=== PATIENT | male | born 1960 | race Hispanic/Latino ===

== ENCOUNTER → 2019-04-09 | Day surgery (SDC) | payer OTHER ==
[2019-04-07 10:43] LABS: BASOPHILS # (AUTO) 0.1 (0.0-0.1); BASOPHILS % 0.8 % (0.0-1.0); EOSINOPHILS # (AUTO) 0.5 (0.0-0.4); EOSINOPHILS % 7.5 % (0.0-6.0); HEMATOCRIT 42.5 % (38.2-49.6); HEMOGLOBIN 14.7 g/dL (14.0-18.0); LYMPHOCYTES # (AUTO) 1.4 (1.0-3.2); LYMPHOCYTES % 21.9 % (18.0-39.1); MEAN CORPUSCULAR HEMOGLOBIN 32.5 pg (28-32); MEAN CORPUSCULAR HGB CONC 34.6 g/dL (31-35); MEAN CORPUSCULAR VOLUME 93.8 fL (81-99); MONOCYTES # (AUTO) 0.6 (0.2-0.8); MONOCYTES % 8.7 % (4.4-11.3); NEUTROPHILS # (AUTO) 3.9 (2.1-6.9); NEUTROPHILS % 60.6 % (38.7-80.0); PLATELET COUNT 138 x10e3/uL (140-360); RED BLOOD COUNT 4.53 x10e6/uL (4.3-5.7); RED CELL DISTRIBUTION WIDTH 12.7 % (11.7-14.4)
[2019-04-07 10:55] LABS: INR 1.12; PROTHROMBIN TIME 14.9 seconds (11.9-14.5)
[2019-04-07 11:02] LABS: ALANINE AMINOTRANSFERASE 40 IU/L (0-55); ALBUMIN 3.9 g/dL (3.5-5.0); ALBUMIN/GLOBULIN RATIO 1.4 (0.8-2.0); ALKALINE PHOSPHATASE 106 IU/L (40-150); ANION GAP 12.1 mmol/L (8-16); BLOOD UREA NITROGEN 11 mg/dL (7-26); BUN/CREATININE RATIO 14 (6-25); CALCIUM 9.1 mg/dL (8.4-10.2); CARBON DIOXIDE 26 mmol/L (22-29); CHLORIDE 104 mmol/L (98-107); EST GLOMERULAR FILTRATION RATE > 60 ML/MIN (60-); GLUCOSE 164 mg/dL (74-118); POTASSIUM 4.1 mmol/L (3.5-5.1); SODIUM 138 mmol/L (136-145)
[~2019-04-09] VITALS: Ht 172.7 cm; Wt 10.9 kg
[~2019-04-09] MED LIST: AMLODIPINE BESY10 MG PO; ATORVASTATIN CA20 MG PO; BENZOCAINE 20% SPR 60 ML CAN ONE; ELIQUIS5 MG PO; FENTANYL CITRATE/PF 100MCG/2 ML INJ ONE; LIDOCAINE HCL 2% LOCAL INJ 5 ML SDV VIAL INJ ONE; METOPROLOL TART25 MG PO; PROPOFOL IV EMULSION 10 MG/ML 20 ML VIAL ONE; SODIUM CHLORIDE 0.9% 1000ML 1,000 ML ONE
[2019-04-09 09:10] VITALS: BP 103/83
--- NOTE | 2019-04-09 11:20 | NUR ---
PROCEDURE NOTE- 1039- PATIENT BROUGHT TO OR ROOM#5 FOR SANDRA/ELECTIVE CARDIOVERSION. ANESTHESIA AT BEDSIDE ASSESSING PATIENT. PATIENT HOOKED TO MONITORS. FULL STACK PYTHON DEVELOPER,KENTRELL ARRIVES WITH US MACHINE. 1047- MD ARRIVES AND TIME OUT PERFORMED WITH ALL PARTICIPATING STAFF. ALL AGREE. 1050- HURRICAINE SPRAY X2 AND MOUTHPIECE INSERTED AND SECURED INTO PATIENT MOUTH. 1052- SANDRA PROBE INSERTED. 1100- BUBBLE STUDY DONE. 1104- SANDRA PROBE OUT. 1105- SYNCHRONIZED CARDIOVERSION PERFORMED AT 100J X1 SHOCK. PATIENT CONVERTED TO SINUS RHYTHM CONFIRMED BY PHYSICIAN ON ZOLL MACHINE. 1108- PATIENT REMOVED FROM MONITORS AND TAKEN TO PHASE 1 RECOVERY BAY #9 WITH ANESTHESIA AT BEDSIDE.PATIENT HOOKED TO MONITORS AND FULL REPORT GIVEN TO TAQUERIA, FIELD MACHINIST BY ME AND ANESTHESIA. PATIENT TOLERATED PROCEDURE WELL. DR JONES TO SPEAK WITH FAMILY IN SMALL WAITING AREA.
[2019-04-09 14:25] VITALS: BP 118/60
[2019-04-09 17:00] VITALS: BP 140/0
--- NOTE | 2019-04-09 21:10 | Operative Report ---
DATE OF PROCEDURE: 04/09/2019 SURGEON: Isela Nayak MD PROCEDURE LABORER LANDSCAPE: Isela Nayak M.D. PROCEDURE: Direct current cardioversion. INDICATION: Atrial fibrillation. PROCEDURE IN DETAIL: The patient was brought to the procedure room in a fasting state after written informed consent was obtained. Pads were applied in the anterior and posterior approach and sedation was performed by Anesthesiology. Patient had transesophageal echocardiogram performed without evidence of left atrial appendage thrombus or thrombus in the left atrium. He was already anticoagulated with Eliquis. One shock was performed with synchronized biphasic waveform at 100 joules with successful sabianism of normal sinus rhythm. The patient had no immediate postprocedure complications. A 12-lead EKG was requested. IMPRESSION: Successful direct current cardioversion with sabianism of normal sinus rhythm from atrial fibrillation without any immediate complications. Isela Nayak MD ABS/MODL /[id number]
== END | disposition home or self-care (01) ==
LOC: CATH LAB 08:41
PROVIDERS: ATTEND Internal Medicine
DX: I48.91 Unspecified atrial fibrillation (principal); I10 Essential (primary) hypertension; I45.10 Unspecified right bundle-branch block; F41.9 Anxiety disorder, unspecified; Z88.0 Allergy status to penicillin; Z01.810 Encounter for preprocedural cardiovascular examination; Z01.812 Encounter for preprocedural laboratory examination; Z79.02 Long term (current) use of antithrombotics/antiplatelets; Z68.38 Body mass index [BMI] 38.0-38.9, adult; Z82.49 Family history of ischemic heart disease and other diseases of the circulatory system
CPT/HCPCS: 36415; 80053; 85025; 85610; 92960; 93005; 93312; 93320; 93325; J2001; J2704; J3010; J7030; 93307